=== PATIENT | male | born 1975 | race Caucasian/White ===

== ENCOUNTER 2023-12-08 09:15 | Day surgery (SDC) | payer BC ==
[~2023-12-08] VITALS: Ht 170.2 cm; Wt 80.3 kg
[~2023-12-08 09:15] MED LIST: ATOR1TAB21 PO; LISI10TA22 PO; NS 1,000 ML IV ONE
[2023-12-08] MEDS ORDERED: propofoL 500 MG/50 ML VIAL As Ordered ONE (10:11)
[2023-12-08] MEDS ORDERED: LIDOCAINE 2% 100MG/5ML SDV (FOR ANES.) As Ordered ONE (10:11)
[2023-12-08] MEDS ORDERED: fentaNYL 100 MCG/2 ML INJECTION As Ordered ONE (10:11)
[2023-12-08 10:42] VITALS: TEMP 97.4
[2023-12-08 11:00] VITALS: BP 114/59; O2SAT 100
== END 2023-12-08 11:11 | disposition home or self-care (01) ==
LOC: M OPP 09:15
PROVIDERS: ATTEND Internal Medicine Gastroenterology
DX: Z12.11 Encounter for screening for malignant neoplasm of colon (principal); Z83.719 Family history of colon polyps, unspecified; K64.8 Other hemorrhoids; K21.00 Gastro-esophageal reflux disease with esophagitis, without bleeding; K22.89 Other specified disease of esophagus; R13.10 Dysphagia, unspecified; I10 Essential (primary) hypertension; Z79.02 Long term (current) use of antithrombotics/antiplatelets; Z79.899 Other long term (current) drug therapy
CPT/HCPCS: 43239; 45378; 88305; J3010